=== PATIENT | female | born 1935 | race Native Hawaiian/Other Pacific Islander ===

== ENCOUNTER 2021-02-10 18:36 | Emergency (ER) | payer OTHER ==
[~2021-02-10] VITALS: Ht 162.6 cm; Wt 67.6 kg
[~2021-02-10 18:36] MED LIST: CIPR250T PO
[2021-02-10 19:07] LABS: PLATELET COUNT 276 K/uL (152-353)
[2021-02-10 19:15] LABS: POTASSIUM 3.9 mmol/L (3.6-5.2)
[2021-02-10 21:08] VITALS: BP 134/63; TEMP 98.5
[2021-02-10] MEDS ORDERED: AMLO2.5T PO (21:44)
[2021-02-10] MEDS ORDERED: FURO20TA67 PO (21:52)
[2021-02-10] MEDS ORDERED: EUTHYROX75 MCG PO (21:53)
[2021-02-10] MEDS ORDERED: HIPREX1 GM PO (21:55)
[2021-02-10] MEDS ORDERED: OMEPRAZOLE DR20 MG PO (21:57)
[2021-02-10] MEDS ORDERED: SPIRONOLACT25 MG PO (21:58)
[2021-02-10] MEDS ORDERED: TRAZ50TA36 PO (21:59)
[2021-02-10] MEDS ORDERED: TRAMADOL HYDROC50 MG PO (22:00)
== END 2021-02-10 21:08 | disposition still patient (30) ==
LOC: ED 18:36
PROVIDERS: Emergency Medicine
DX: F03.91 Unspecified dementia, unspecified severity, with behavioral disturbance (principal); R45.1 Restlessness and agitation; D72.828 Other elevated white blood cell count; R93.89 Abnormal findings on diagnostic imaging of other specified body structures; Z11.52 Encounter for screening for COVID-19; Z04.6 Encounter for general psychiatric examination, requested by authority
CPT/HCPCS: 80053; 85027; 87635; 93005; 96372; 99283; J0696; U0003